=== PATIENT | female | born 1975 | race African-American/Black ===

== ENCOUNTER 2018-07-26 11:35 | Emergency (ER) | payer SELFPAY ==
[~2018-07-26] VITALS: Ht 160 cm; Wt 80.0 kg
[~2018-07-26 11:35] MED LIST: A/B OTIC OT; AMOXICILLIN500 MG PO; AMOXICILLIN875 MG OR; AUGMENTIN875 MG PO; CIPROFLOXACN500 MG PO; CLARITIN10 M1 PO; CORTISPORIN OTI10 M2 AD; DIFLUCAN150 MG PO; FIORICET PO; IBUPROFEN800 MG PO; LEVAQUIN500 MG PO; LORTAB 5 OR; NASONEX50 MCG/AC NAB; NEO/POLY/HC11 OT; NO MEDS; PENICILLN VK500 MG OR; ROCEPHIN 1 GM1 GM IM; SOLU-MEDROL125 MG IM; ULTRAM50 MG OR; ZOFRAN ODT8 MG OR
[2018-07-26 11:51] VITALS: BP 139/82
[2018-07-26] MEDS ORDERED: LISINOPRIL10 M1 PO (11:55)
[2018-07-26] MEDS ORDERED: CHOLESTEROL PILL (11:55)
[2018-07-26] MEDS ORDERED: CEPHALEXIN500 M1 PO (12:57)
== END 2018-07-26 13:09 | disposition home or self-care (01) | DRG 816 ==
LOC: ED 11:35
DX: I88.9 Nonspecific lymphadenitis, unspecified (principal); I10 Essential (primary) hypertension

== ENCOUNTER 2018-08-17 09:48 | Emergency (ER) | payer SELFPAY ==
[~2018-08-17] VITALS: Ht 160 cm; Wt 72.7 kg
[~2018-08-17 09:48] MED LIST changes: +CEPHALEXIN500 M1 PO; +CHOLESTEROL PILL; +LISINOPRIL10 M1 PO
[2018-08-17] MEDS ORDERED: CLARITIN10 M1 PO (09:56)
[2018-08-17 10:59] LABS: HEMATOCRIT 37.5 % (37.0-47.0); HEMOGLOBIN 11.4 g/dl (12.0-16.0); IMMATURE GRANULOCYTES 0.3 % (0.0-5.0); MEAN CELL VOLUME 75.6 fL CALC (80.0-100.0); MEAN CORPUSCULAR HGB CONC 30.4 g/L CALC (32.0-36.0); NEUT# 5.18 thou/uL (2.00-7.15); RED BLOOD COUNT 4.96 mill/uL (4.20-5.60)
[2018-08-17 11:13] LABS: ALBUMIN 4.8 g/dL (3.2-5.0); ALKALINE PHOSPHATASE 110 u/l (38-126); ANION GAP 15 (6-22 (CALC)); BILIRUBIN, TOTAL 0.3 mg/dL (0.0-1.4); BUN 10 mg/dL (7-17); BUN/CREATININE RATIO 14 (12-20 (CALC)); CARBON DIOXIDE 24 mmol/l (22-30); CHLORIDE 105 mmol/l (95-108); CREATININE 0.8 mg/dL (0.5-1.0); GFR > 60 ML/MIN (>=60 (CALC)); GFR FOR AFR.AMER. > 60 ML/MIN (>=60 (CALC)); SGOT/AST 30 u/l (14-36); SODIUM 140 mmol/l (137-146); TOTAL PROTEIN 8.4 g/dL (6.3-8.2)
[2018-08-17 11:21] LABS: MYOGLOBIN 25 ng/mL (0 - 62)
[2018-08-17 11:26] LABS: URINE BILIRUBIN - DIPSTICK NEGATIVE (NEGATIVE); URINE BLOOD DIPSTICK SMALL (NEGATIVE); URINE COLOR YELLOW; URINE GLUCOSE - DIPSTICK NEGATIVE (NEGATIVE); URINE KETONE NEGATIVE (NEGATIVE); URINE LEUK ESTERASE NEGATIVE (NEGATIVE); URINE NITRITE - DIPSTICK NEGATIVE (Negative); URINE PH 5.5 (4.5-8.0); URINE PROTEIN - DIPSTICK NEGATIVE (NEG-TRACE); URINE SPECIFIC GRAVITY 1.015; URINE UROBILINOGEN - DIPSTICK 0.2 E.U./dL (0.2)
[2018-08-17 11:34] LABS: BARBITURATES NEGATIVE (NEGATIVE); COCAINE NEGATIVE (NEGATIVE); METHADONE NEGATIVE (NEGATIVE); TETRAHYDROCANNABIONOL NEGATIVE (NEGATIVE); TRICYLIC ANTIDEPRESSANTS NEGATIVE (NEGATIVE)
[2018-08-17 11:35] LABS: OXCYCODONE NEGATIVE (NEGATIVE)
[2018-08-17 11:38] LABS: URINE SQUAMOUS EPITHELIAL CELL FEW EPI/hpf (0-FEW)
[2018-08-17] MEDS ORDERED: ZOFRAN ODT4 MG PO (13:13)
[2018-08-17] MEDS ORDERED: ULTRAM50 M1 PO (13:13)
[2018-08-17] MEDS ORDERED: BACTRIM DS1 TAB PO (13:13)
[2018-08-17 13:26] VITALS: BP 125/67
== END 2018-08-17 13:26 | disposition home or self-care (01) | DRG 153 ==
LOC: ED 09:48
PROVIDERS: Emergency Medicine
DX: J02.9 Acute pharyngitis, unspecified (principal); N30.90 Cystitis, unspecified without hematuria; N83.202 Unspecified ovarian cyst, left side; I10 Essential (primary) hypertension
CPT/HCPCS: Q9967

== ENCOUNTER 2018-08-21 18:24 | Emergency (ER) | payer SELFPAY ==
[~2018-08-21] VITALS: Ht 160 cm; Wt 85.0 kg
[~2018-08-21 18:24] MED LIST changes: +BACTRIM DS1 TAB PO; +ULTRAM50 M1 PO; +ZOFRAN ODT4 MG PO
[2018-08-21 19:17] LABS: HEMATOCRIT 36.1 % (37.0-47.0); IMMATURE GRANULOCYTES 0.2 % (0.0-5.0); MEAN CELL VOLUME 74.6 fL CALC (80.0-100.0); MEAN CORPUSCULAR HGB 22.7 pG CALC (26.0-32.0); MEAN CORPUSCULAR HGB CONC 30.5 g/L CALC (32.0-36.0); NEUT# 2.49 thou/uL (2.00-7.15); RED BLOOD COUNT 4.84 mill/uL (4.20-5.60); RED CELL DISTRI WIDTH 15.1 % (11.5-15.5)
[2018-08-21] MEDS ORDERED: ZESTRIL5 M1 PO (19:18)
[2018-08-21 19:38] LABS: ALBUMIN 4.8 g/dL (3.2-5.0); ALKALINE PHOSPHATASE 110 u/l (38-126); ANION GAP 18 (6-22 (CALC)); BILIRUBIN, TOTAL 0.3 mg/dL (0.0-1.4); BUN 9 mg/dL (7-17); BUN/CREATININE RATIO 8 (12-20 (CALC)); CARBON DIOXIDE 20 mmol/l (22-30); CHLORIDE 108 mmol/l (95-108); GFR > 60 ML/MIN (>=60 (CALC)); GFR FOR AFR.AMER. > 60 ML/MIN (>=60 (CALC)); POTASSIUM 4.1 mmol/l (3.5-5.1); SGOT/AST 52 u/l (14-36); SODIUM 141 mmol/l (137-146); TOTAL PROTEIN 8.1 g/dL (6.3-8.2)
[2018-08-21 22:30] VITALS: BP 130/82
[2018-08-21] MEDS ORDERED: CODEINE/GUAIFEN1 SOL PO (22:33)
== END 2018-08-21 22:38 | disposition home or self-care (01) | DRG 153 ==
LOC: ED 18:24
PROVIDERS: Emergency Medicine
DX: J02.9 Acute pharyngitis, unspecified (principal); E04.9 Nontoxic goiter, unspecified; I10 Essential (primary) hypertension
CPT/HCPCS: Q9967

== ENCOUNTER 2018-08-27 16:27 | Emergency (ER) | payer SELFPAY ==
[~2018-08-27] VITALS: Ht 160 cm; Wt 68.0 kg
[~2018-08-27 16:27] MED LIST changes: +CODEINE/GUAIFEN1 SOL PO; +ZESTRIL5 M1 PO
[2018-08-27 17:38] LABS: HEMOGLOBIN 12.9 g/dl (12.0-16.0); IMMATURE GRANULOCYTES 0.2 % (0.0-5.0); MEAN CELL VOLUME 75.6 fL CALC (80.0-100.0); MEAN CORPUSCULAR HGB 22.6 pG CALC (26.0-32.0); MEAN CORPUSCULAR HGB CONC 29.9 g/L CALC (32.0-36.0); NEUT# 3.21 thou/uL (2.00-7.15); RED BLOOD COUNT 5.7 mill/uL (4.20-5.60); RED CELL DISTRI WIDTH 15.3 % (11.5-15.5)
[2018-08-27 17:39] LABS: HEMATOCRIT 43.1 % (37.0-47.0)
[2018-08-27 18:02] LABS: ANION GAP 20 (6-22 (CALC)); BUN 9 mg/dL (7-17); BUN/CREATININE RATIO 10 (12-20 (CALC)); CARBON DIOXIDE 21 mmol/l (22-30); CHLORIDE 105 mmol/l (95-108); CREATININE 0.9 mg/dL (0.5-1.0); GFR > 60 ML/MIN (>=60 (CALC)); GFR FOR AFR.AMER. > 60 ML/MIN (>=60 (CALC)); POTASSIUM 4.5 mmol/l (3.5-5.1); SODIUM 140 mmol/l (137-146)
[2018-08-27 18:31] LABS: TSH, 3RD GENERATION 3.17 uIU/mL (0.47 - 4.68)
[2018-08-27] MEDS ORDERED: SIMVASTATIN5 MG PO (19:27)
[2018-08-27 21:05] VITALS: BP 127/80
== END 2018-08-27 21:04 | disposition short-term general hospital (02) | DRG 916 ==
LOC: ED 16:27
PROVIDERS: Family Medicine
DX: T78.2XXA Anaphylactic shock, unspecified, initial encounter (principal); E04.9 Nontoxic goiter, unspecified; R22.1 Localized swelling, mass and lump, neck

== ENCOUNTER 2018-10-11 21:01 | Emergency (ER) | payer BC ==
[~2018-10-11] VITALS: Ht 160 cm; Wt 71.0 kg
[~2018-10-11 21:01] MED LIST changes: +SIMVASTATIN5 MG PO
[2018-10-11] MEDS ORDERED: PREDNISONE20 MG PO (21:10)
[2018-10-11 21:45] LABS: HEMATOCRIT 39.2 % (37.0-47.0); MEAN CELL VOLUME 76.3 fL CALC (80.0-100.0); MEAN CORPUSCULAR HGB 23.3 pG CALC (26.0-32.0); MEAN CORPUSCULAR HGB CONC 30.6 g/L CALC (32.0-36.0); NEUT# 12.66 thou/uL (2.00-7.15); RED BLOOD COUNT 5.14 mill/uL (4.20-5.60); RED CELL DISTRI WIDTH 15.4 % (11.5-15.5)
[2018-10-11 22:00] LABS: ALBUMIN 4.5 g/dL (3.2-5.0); ALKALINE PHOSPHATASE 86 u/l (38-126); ANION GAP 15 (6-22 (CALC)); BILIRUBIN, TOTAL 0.3 mg/dL (0.0-1.4); BUN 14 mg/dL (7-17); BUN/CREATININE RATIO 16 (12-20 (CALC)); CHLORIDE 104 mmol/l (95-108); CREATININE 0.9 mg/dL (0.5-1.0); GFR > 60 ML/MIN (>=60 (CALC)); GFR FOR AFR.AMER. > 60 ML/MIN (>=60 (CALC)); POTASSIUM 3.6 mmol/l (3.5-5.1); SGOT/AST 23 u/l (14-36); SODIUM 142 mmol/l (137-146); TOTAL PROTEIN 7.5 g/dL (6.3-8.2)
[2018-10-11 22:03] LABS: CARBON DIOXIDE 27 mmol/l (22-30)
[2018-10-11 23:20] LABS: URINE BILIRUBIN - DIPSTICK NEGATIVE (NEGATIVE); URINE BLOOD DIPSTICK SMALL (NEGATIVE); URINE COLOR YELLOW; URINE GLUCOSE - DIPSTICK NEGATIVE (NEGATIVE); URINE KETONE NEGATIVE (NEGATIVE); URINE LEUK ESTERASE NEGATIVE (NEGATIVE); URINE NITRITE - DIPSTICK NEGATIVE (Negative); URINE PH 5.5 (4.5-8.0); URINE PROTEIN - DIPSTICK NEGATIVE (NEG-TRACE); URINE SPECIFIC GRAVITY 1.025; URINE UROBILINOGEN - DIPSTICK 0.2 E.U./dL (0.2)
[2018-10-11 23:40] LABS: URINE SQUAMOUS EPITHELIAL CELL FEW EPI/hpf (0-FEW)
[2018-10-11] MEDS ORDERED: SINGULAIR10 MG PO (23:43)
[2018-10-12] VITALS: BP 121/77
== END 2018-10-12 | disposition home or self-care (01) | DRG 607 ==
LOC: ED 21:01
PROVIDERS: Family Medicine
DX: R22.0 Localized swelling, mass and lump, head (principal); J02.9 Acute pharyngitis, unspecified; M79.89 Other specified soft tissue disorders; T38.0X5A Adverse effect of glucocorticoids and synthetic analogues, initial encounter; I10 Essential (primary) hypertension

== ENCOUNTER 2018-10-14 10:51 | Emergency (ER) | payer BC ==
[~2018-10-14] VITALS: Ht 160 cm; Wt 80.0 kg
[~2018-10-14 10:51] MED LIST changes: +PREDNISONE20 MG PO; +SIMVASTATIN40 MG PO; -SIMVASTATIN5 MG PO; +SINGULAIR10 MG PO
[2018-10-14 11:46] LABS: HEMATOCRIT 40.5 % (37.0-47.0); HEMOGLOBIN 12.1 g/dl (12.0-16.0); IMMATURE GRANULOCYTES 0.7 % (0.0-5.0); MEAN CELL VOLUME 77.6 fL CALC (80.0-100.0); MEAN CORPUSCULAR HGB 23.2 pG CALC (26.0-32.0); MEAN CORPUSCULAR HGB CONC 29.9 g/L CALC (32.0-36.0); RED BLOOD COUNT 5.22 mill/uL (4.20-5.60); RED CELL DISTRI WIDTH 15.7 % (11.5-15.5)
[2018-10-14 11:54] LABS: ANION GAP 18 (6-22 (CALC)); BUN 12 mg/dL (7-17); BUN/CREATININE RATIO 15 (12-20 (CALC)); CARBON DIOXIDE 26 mmol/l (22-30); CHLORIDE 100 mmol/l (95-108); CREATININE 0.8 mg/dL (0.5-1.0); GFR > 60 ML/MIN (>=60 (CALC)); GFR FOR AFR.AMER. > 60 ML/MIN (>=60 (CALC)); SODIUM 141 mmol/l (137-146)
[2018-10-14 12:11] LABS: POTASSIUM 2.7 mmol/l (3.5-5.1)
[2018-10-14] MEDS ORDERED: OMEPRAZOLE10 MG PO (12:40)
[2018-10-14 14:20] VITALS: BP 149/86
== END 2018-10-14 14:20 | disposition short-term general hospital (02) | DRG 916 ==
LOC: ED 10:51
PROVIDERS: Family Medicine
PROC: 0BH17EZ Insertion of Endotracheal Airway into Trachea, Via Natural or Artificial Opening (ICD-10-PCS; principal; 2018-10-14)
PROC: 0T9B70Z Drainage of Bladder with Drainage Device, Via Natural or Artificial Opening (ICD-10-PCS; 2018-10-14)
PROC: 02HV33Z Insertion of Infusion Device into Superior Vena Cava, Percutaneous Approach (ICD-10-PCS; 2018-10-14)
DX: T88.6XXA Anaphylactic reaction due to adverse effect of correct drug or medicament properly administered, initial encounter (principal); T38.0X5A Adverse effect of glucocorticoids and synthetic analogues, initial encounter; I10 Essential (primary) hypertension

== ENCOUNTER 2018-10-21 14:33 | Emergency (ER) | payer BC ==
[~2018-10-21] VITALS: Ht 160 cm; Wt 75.0 kg
[~2018-10-21 14:33] MED LIST changes: +OMEPRAZOLE10 MG PO
[2018-10-21] MEDS ORDERED: TESSALON PERLE100 MG PO (15:25)
[2018-10-21 15:26] LABS: ALBUMIN 5.2 g/dL (3.2-5.0); ALKALINE PHOSPHATASE 99 u/l (38-126); BUN 22 mg/dL (7-17); BUN/CREATININE RATIO 27 (12-20 (CALC)); CARBON DIOXIDE 26 mmol/l (22-30); CHLORIDE 96 mmol/l (95-108); CREATININE 0.8 mg/dL (0.5-1.0); GFR > 60 ML/MIN (>=60 (CALC)); GFR FOR AFR.AMER. > 60 ML/MIN (>=60 (CALC)); SODIUM 138 mmol/l (137-146); TOTAL PROTEIN 8.8 g/dL (6.3-8.2)
[2018-10-21] MEDS ORDERED: PREDNISONE20 MG PO (15:26)
[2018-10-21] MEDS ORDERED: CODEINE/GUAIFEN1 SOL PO (15:26)
[2018-10-21 15:27] LABS: ANION GAP 21 (6-22 (CALC)); BILIRUBIN, TOTAL 0.7 mg/dL (0.0-1.4); POTASSIUM 4.9 mmol/l (3.5-5.1); SGOT/AST 48 u/l (14-36)
[2018-10-21] MEDS ORDERED: EPINEPHRIN IM (15:30)
[2018-10-21 15:32] LABS: HEMATOCRIT 45.1 % (37.0-47.0); HEMOGLOBIN 13.7 g/dl (12.0-16.0); IMMATURE GRANULOCYTES 1.4 % (0.0-5.0); MEAN CELL VOLUME 76.3 fL CALC (80.0-100.0); MEAN CORPUSCULAR HGB 23.2 pG CALC (26.0-32.0); MEAN CORPUSCULAR HGB CONC 30.4 g/L CALC (32.0-36.0); NEUT# 23.02 thou/uL (2.00-7.15); RED BLOOD COUNT 5.91 mill/uL (4.20-5.60); RED CELL DISTRI WIDTH 15.8 % (11.5-15.5)
[2018-10-21 15:36] VITALS: BP 134/64
== END 2018-10-21 15:36 | disposition short-term general hospital (02) | DRG 916 ==
LOC: ED 14:33
PROVIDERS: Emergency Medicine
DX: T78.3XXA Angioneurotic edema, initial encounter (principal); R06.02 Shortness of breath

== ENCOUNTER 2019-01-22 08:58 | Emergency (ER) | payer BC ==
[~2019-01-22] VITALS: Ht 160 cm; Wt 80.0 kg
[~2019-01-22 08:58] MED LIST changes: +EPINEPHRIN IM; +TESSALON PERLE100 MG PO
[2019-01-22 09:51] LABS: IMMATURE GRANULOCYTES 0.2 % (0.0-5.0); MEAN CELL VOLUME 76.6 fL CALC (80.0-100.0); MEAN CORPUSCULAR HGB 23.4 pG CALC (26.0-32.0); MEAN CORPUSCULAR HGB CONC 30.5 g/L CALC (32.0-36.0); NEUT# 3.38 thou/uL (2.00-7.15); RED CELL DISTRI WIDTH 13.9 % (11.5-15.5)
[2019-01-22 09:53] LABS: HEMATOCRIT 38.3 % (37.0-47.0); HEMOGLOBIN 11.7 g/dl (12.0-16.0)
[2019-01-22] MEDS ORDERED: [UNRECOGNIZED DRUG - CODE] SC (10:14)
[2019-01-22] MEDS ORDERED: OMEPRAZOLE20 M2 PO (10:15)
[2019-01-22] MEDS ORDERED: AFRIN0.05 % (10:15)
[2019-01-22] MEDS ORDERED: BENADRYL 25MG C25 MG PO (10:16)
[2019-01-22] MEDS ORDERED: FLONASE AL50 MCG/ACT NAB (10:17)
[2019-01-22 10:18] LABS: ANION GAP 16 (6-22 (CALC)); BUN 8 mg/dL (7-17); BUN/CREATININE RATIO 13 (12-20 (CALC)); CARBON DIOXIDE 24 mmol/l (22-30); CHLORIDE 108 mmol/l (95-108); CREATININE 0.6 mg/dL (0.5-1.0); GFR > 60 ML/MIN (>=60 (CALC)); GFR FOR AFR.AMER. > 60 ML/MIN (>=60 (CALC)); POTASSIUM 3.9 mmol/l (3.5-5.1); SODIUM 144 mmol/l (137-146)
[2019-01-22] MEDS ORDERED: ALLERGY RE50 MCG/ACT NAB (10:18)
[2019-01-22 13:12] VITALS: BP 119/86
== END 2019-01-22 13:37 | disposition home or self-care (01) | DRG 103 ==
LOC: ED 08:58
PROVIDERS: Family Medicine
DX: R51 Headache (principal); I10 Essential (primary) hypertension

== ENCOUNTER 2019-02-18 11:40 | Emergency (ER) | payer BC ==
[~2019-02-18] VITALS: Ht 160 cm; Wt 79.5 kg
[~2019-02-18 11:40] MED LIST changes: +AFRIN0.05 %; +ALLERGY RE50 MCG/ACT NAB; +BENADRYL 25MG C25 MG PO; +FLONASE AL50 MCG/ACT NAB; +OMEPRAZOLE20 M2 PO; +[UNRECOGNIZED DRUG - CODE] SC
[2019-02-18 14:02] VITALS: BP 114/75
== END 2019-02-18 14:43 | disposition home or self-care (01) | DRG 812 ==
LOC: ED 11:40
DX: T80.89XA Other complications following infusion, transfusion and therapeutic injection, initial encounter (principal); I11.0 Hypertensive heart disease with heart failure; I50.9 Heart failure, unspecified; Y84.8 Other medical procedures as the cause of abnormal reaction of the patient, or of later complication, without mention of misadventure at the time of the procedure

== ENCOUNTER 2019-04-07 00:20 | Emergency (ER) | payer BC ==
[~2019-04-07] VITALS: Ht 160 cm; Wt 77.2 kg
[2019-04-07] MEDS ORDERED: AMOXICILLIN500 M2 PO (00:40)
[2019-04-07 00:54] VITALS: BP 139/95
[2019-04-07] MEDS ORDERED: CORLANOR5 MG PO (01:12)
== END 2019-04-07 00:54 | disposition home or self-care (01) | DRG 153 ==
LOC: ED 00:20
DX: J02.9 Acute pharyngitis, unspecified (principal)

== ENCOUNTER 2019-05-16 | Emergency (ER) | payer BC ==
[~2019-05-16] MED LIST changes: +AMOXICILLIN500 M2 PO; +CORLANOR5 MG PO
[2019-05-16] MEDS ORDERED: METFORMIN500 MG PO (21:52)
[2019-05-16] MEDS ORDERED: CODEINE/GUAIFEN1 SOL PO (22:51)
[2019-05-16] MEDS ORDERED: AMOXICILLIN500 MG PO (22:51)
== END 2019-05-16 23:20 | disposition home or self-care (01) | DRG 153 ==
DX: J02.9 Acute pharyngitis, unspecified (principal); H66.90 Otitis media, unspecified, unspecified ear; I11.0 Hypertensive heart disease with heart failure; I50.9 Heart failure, unspecified

== ENCOUNTER 2019-09-17 13:28 | Emergency (ER) | payer BC ==
[~2019-09-17 13:28] MED LIST changes: +METFORMIN500 MG PO
[2019-09-17 14:59] VITALS: BP 141/85
[2019-09-17] MEDS ORDERED: AMOX/K CLAV875 M1 PO (15:00)
== END 2019-09-17 14:59 | disposition home or self-care (01) | DRG 159 ==
LOC: ED 13:28
DX: K03.81 Cracked tooth (principal); E11.9 Type 2 diabetes mellitus without complications; I11.0 Hypertensive heart disease with heart failure; I50.9 Heart failure, unspecified; I48.91 Unspecified atrial fibrillation; Z79.84 Long term (current) use of oral hypoglycemic drugs

== ENCOUNTER 2021-02-20 07:54 | Emergency (ER) | payer OTHER ==
[~2021-02-20] VITALS: Ht 160 cm; Wt 102.0 kg
[~2021-02-20 07:54] MED LIST changes: +AMOX/K CLAV875 M1 PO
[2021-02-20] MEDS ORDERED: NORVASC5 M1 PO (08:21)
[2021-02-20] MEDS ORDERED: ZANAFLEX2 MG PO (09:48)
[2021-02-20] MEDS ORDERED: TORADOL PO (09:48)
[2021-02-20] MEDS ORDERED: MEDDOSEPAK PO (09:48)
[2021-02-20] MEDS ORDERED: LIDOCAINE PATCH 55 % TOP (09:48)
[2021-02-20 09:51] VITALS: BP 169/86
== END 2021-02-20 10:16 | disposition home or self-care (01) | DRG 552 ==
LOC: ED 07:54
DX: M51.86 Other intervertebral disc disorders, lumbar region (principal); I11.0 Hypertensive heart disease with heart failure; I50.9 Heart failure, unspecified; E11.9 Type 2 diabetes mellitus without complications; E78.5 Hyperlipidemia, unspecified; I48.91 Unspecified atrial fibrillation; M79.7 Fibromyalgia; E78.00 Pure hypercholesterolemia, unspecified

== ENCOUNTER 2021-07-18 12:34 | Emergency (ER) | payer OTHER ==
[~2021-07-18] VITALS: Ht 157.5 cm; Wt 73.6 kg
[~2021-07-18 12:34] MED LIST changes: +CYMBALTA20 MG PO; +HYDROXYZINE HYD25 MG PO; +LIDOCAINE PATCH 55 % TOP; +MEDDOSEPAK PO; +NORVASC5 M1 PO; +TORADOL PO; +ZANAFLEX2 MG PO
[2021-07-18 13:15] VITALS: BP 122/86
[2021-07-18] MEDS ORDERED: BENADRYL ALLERG25 M1 PO (13:49)
[2021-07-18 13:56] LABS: HEMATOCRIT 39.1 % (37.0-47.0); HEMOGLOBIN 11.6 g/dl (12.0-16.0); IMMATURE GRANULOCYTES 0.2 % (0.0-5.0); MEAN CELL VOLUME 75.9 fL CALC (80.0-100.0); MEAN CORPUSCULAR HGB 22.5 pG CALC (26.0-32.0); MEAN CORPUSCULAR HGB CONC 29.7 g/dL CAL (32.0-36.0); NEUT# 3.67 thou/uL (2.00-7.15); RED BLOOD COUNT 5.15 mill/uL (4.20-5.60); RED CELL DISTRI WIDTH 14.1 % (11.5-15.5)
[2021-07-18 14:11] LABS: ALBUMIN 4.6 g/dL (3.2-5.0); ALKALINE PHOSPHATASE 97 u/l (38-126); AMYLASE 67 u/l (30-110); ANION GAP 15 (6-22 (CALC)); BILIRUBIN, TOTAL 0.5 mg/dL (0.0-1.4); BUN 6 mg/dL (7-17); BUN/CREATININE RATIO 9 (12-20 (CALC)); CARBON DIOXIDE 24 mmol/l (22-30); CHLORIDE 104 mmol/l (95-108); CREATININE 0.7 mg/dL (0.5-1.0); GFR > 60 ML/MIN (>=60 (CALC)); GFR FOR AFR.AMER. > 60 ML/MIN (>=60 (CALC)); LIPASE 177 u/l (23-300); POTASSIUM 4.3 mmol/l (3.5-5.1); SGOT/AST 72 u/l (14-36); SODIUM 139 mmol/l (137-146); TOTAL PROTEIN 8.1 g/dL (6.3-8.2)
[2021-07-18] MEDS ORDERED: LORTAB 1010 MG PO (16:13)
[2021-07-18] MEDS ORDERED: PREVACID30 M3 PO (16:13)
[2021-07-18] MEDS ORDERED: ONDANSETRON4 MG PO (16:13)
[2021-07-18 16:20] VITALS: BP 122/86
--- NOTE | 2021-07-20 09:04 | NUR ---
1 OF 4 OF THE BLOOD CULTURES SHOWS GRAM POSTIVIE COCCI. SPOKE TO DR. HOLM, NO NEW ORDERS AND WILL FOLLOW UP WITH FINAL .
== END 2021-07-18 16:54 | disposition home or self-care (01) | DRG 446 ==
LOC: ED 12:34
PROVIDERS: Emergency Medicine
DX: K80.20 Calculus of gallbladder without cholecystitis without obstruction (principal); I11.0 Hypertensive heart disease with heart failure; I50.9 Heart failure, unspecified; I48.91 Unspecified atrial fibrillation; Z20.822 Contact with and (suspected) exposure to COVID-19
CPT/HCPCS: Q9967; S0164

== ENCOUNTER 2021-07-22 21:52 | Emergency (ER) | payer OTHER ==
[~2021-07-22] VITALS: Ht 157.5 cm; Wt 72.0 kg
[~2021-07-22 21:52] MED LIST changes: +BENADRYL ALLERG25 M1 PO; +LORTAB 1010 MG PO; +ONDANSETRON4 MG PO; +PREVACID30 M3 PO
[2021-07-22 21:58] VITALS: BP 134/89
[2021-07-22 22:00] VITALS: BP 140/92
[2021-07-22 22:33] VITALS: BP 140/92
[2021-07-22] MEDS ORDERED: MIRALAX17 GM PO (22:34)
== END 2021-07-22 22:44 | disposition home or self-care (01) | DRG 392 ==
LOC: ED 21:52
DX: K59.00 Constipation, unspecified (principal); I11.0 Hypertensive heart disease with heart failure; I50.9 Heart failure, unspecified; I48.91 Unspecified atrial fibrillation; E78.5 Hyperlipidemia, unspecified

== ENCOUNTER 2021-07-25 10:45 | Day surgery (SDC) | payer OTHER ==
[~2021-07-25] VITALS: Ht 157.5 cm; Wt 73.5 kg
[~2021-07-25 10:45] MED LIST changes: +MIRALAX17 GM PO
[2021-07-25] MEDS ORDERED: PERCOCET 5/321 COMBO PO (12:41)
[2021-07-25 15:04] VITALS: BP 112/83
== END 2021-07-25 15:10 | disposition home or self-care (01) | DRG 419 ==
LOC: ENDO 10:45 → ORM 13:15 → ENDO 15:10
PROVIDERS: ATTEND Surgery
PROC: 0FT44ZZ Resection of Gallbladder, Percutaneous Endoscopic Approach (ICD-10-PCS; principal; 2021-07-25)
PROC: 0DJ08ZZ Inspection of Upper Intestinal Tract, Via Natural or Artificial Opening Endoscopic (ICD-10-PCS; 2021-07-25)
PROC: 0DBN8ZX Excision of Sigmoid Colon, Via Natural or Artificial Opening Endoscopic, Diagnostic (ICD-10-PCS; 2021-07-25)
DX: K81.1 Chronic cholecystitis (principal); Z12.11 Encounter for screening for malignant neoplasm of colon; D12.5 Benign neoplasm of sigmoid colon; I10 Essential (primary) hypertension; E11.9 Type 2 diabetes mellitus without complications; E78.5 Hyperlipidemia, unspecified; Z79.84 Long term (current) use of oral hypoglycemic drugs; Z80.0 Family history of malignant neoplasm of digestive organs; K64.8 Other hemorrhoids
CPT/HCPCS: J0131; J1610; Q9967

== ENCOUNTER 2021-08-24 08:56 | Day surgery (SDC) | payer OTHER ==
[~2021-08-24] VITALS: Ht 157.5 cm; Wt 72.6 kg
[~2021-08-24 08:56] MED LIST changes: +PERCOCET 5/321 COMBO PO
[2021-08-24] MEDS ORDERED: PERCOCET 5/321 COMBO PO (10:50)
[2021-08-24 12:11] VITALS: BP 126/72
== END 2021-08-24 12:30 | disposition home or self-care (01) | DRG 349 ==
LOC: ORM 08:56
PROVIDERS: ATTEND Surgery
PROC: 06BY3ZC Excision of Hemorrhoidal Plexus, Percutaneous Approach (ICD-10-PCS; principal; 2021-08-24)
DX: K64.8 Other hemorrhoids (principal)
CPT/HCPCS: C9290; J0131

== ENCOUNTER 2021-12-15 17:28 | Emergency (ER) | payer SELFPAY ==
[2021-12-15] VITALS (10 sets, daily range): BP systolic 121–149; BP diastolic 82–97
[~2021-12-15] VITALS: Ht 157.5 cm; Wt 72.7 kg
[2021-12-15 17:57] LABS: HEMATOCRIT 40.1 % (37.0-47.0); HEMOGLOBIN 12.5 g/dl (12.0-16.0); IMMATURE GRANULOCYTES 0.1 % (0.0-5.0); MEAN CELL VOLUME 73.2 fL CALC (80.0-100.0); MEAN CORPUSCULAR HGB 22.8 pG CALC (26.0-32.0); MEAN CORPUSCULAR HGB CONC 31.2 g/dL CAL (32.0-36.0); NEUT# 4.61 thou/uL (2.00-7.15); RED BLOOD COUNT 5.48 mill/uL (4.20-5.60); RED CELL DISTRI WIDTH 14.1 % (11.5-15.5)
[2021-12-15 18:25] LABS: ALBUMIN 4.8 g/dL (3.2-5.0); ALKALINE PHOSPHATASE 113 u/l (38-126); ANION GAP 17 (6-22 (CALC)); BUN 9 mg/dL (7-17); BUN/CREATININE RATIO 12 (12-20 (CALC)); CARBON DIOXIDE 27 mmol/l (22-30); CHLORIDE 102 mmol/l (95-108); CREATININE 0.7 mg/dL (0.5-1.0); GFR FOR AFR.AMER. > 60 ML/MIN (>=60 (CALC)); GFR OTHER RACES > 60 ML/MIN (>=60 (CALC)); POTASSIUM 4.4 mmol/l (3.5-5.1); SODIUM 141 mmol/l (137-146); TOTAL PROTEIN 8.5 g/dL (6.3-8.2)
[2021-12-15 18:27] LABS: BILIRUBIN, TOTAL 0.6 mg/dL (0.0-1.4); SGOT/AST 80 u/l (14-36)
[2021-12-15] MEDS ORDERED: HIGH CHOLESTEROL MED (19:34)
[2021-12-15] MEDS ORDERED: OMEPRAZOLE20 MG PO (19:36)
[2021-12-15] MEDS ORDERED: NAPROXEN500 MG PO (19:45)
[2021-12-15] MEDS ORDERED: METHOCARBAMOL500 MG PO (19:45)
[2021-12-15] MEDS ORDERED: PENICILLN VK500 MG PO (19:45)
== END 2021-12-15 19:58 | disposition home or self-care (01) | DRG 103 ==
LOC: ED 17:28
PROVIDERS: Nurse Practitioner
DX: R51.9 Headache, unspecified (principal); K04.7 Periapical abscess without sinus; I11.0 Hypertensive heart disease with heart failure; I50.9 Heart failure, unspecified; E78.5 Hyperlipidemia, unspecified; I48.91 Unspecified atrial fibrillation

== ENCOUNTER 2022-05-09 06:11 | Emergency (ER) | payer SELFPAY ==
[~2022-05-09] VITALS: Ht 157.5 cm; Wt 72.0 kg
[~2022-05-09 06:11] MED LIST changes: +HIGH CHOLESTEROL MED; +METHOCARBAMOL500 MG PO; +NAPROXEN500 MG PO; +OMEPRAZOLE20 MG PO; +PENICILLN VK500 MG PO
[2022-05-09 06:30] VITALS: BP 129/91
[2022-05-09 06:45] VITALS: BP 119/88
[2022-05-09 07:11] LABS: BASO% 0.6 % (0-3); EOS% 3.3 % (0-8); HEMATOCRIT 42.2 % (37.0-47.0); HEMOGLOBIN 13.2 g/dl (12.0-16.0); IMMATURE GRANULOCYTES 0.1 % (0.0-5.0); LYMPH% 33.8 % (15-41); MEAN CELL VOLUME 73.8 fL CALC (80.0-100.0); MEAN CORPUSCULAR HGB 23.1 pG CALC (26.0-32.0); MEAN CORPUSCULAR HGB CONC 31.3 g/dL CAL (32.0-36.0); MONO% 5.9 % (2-13); NEUT# 3.8 thou/uL (2.00-7.15); NEUT% 56.3 % (42-76); RED BLOOD COUNT 5.72 mill/uL (4.20-5.60); RED CELL DISTRI WIDTH 13.7 % (11.5-15.5)
[2022-05-09 07:26] LABS: ALBUMIN 4.7 g/dL (3.2-5.0); ALKALINE PHOSPHATASE 143 u/l (38-126); ANION GAP 14 (6-22 (CALC)); BUN 13 mg/dL (7-17); BUN/CREATININE RATIO 16 (12-20 (CALC)); CARBON DIOXIDE 28 mmol/l (22-30); CHLORIDE 105 mmol/l (95-108); CPK 35 u/l (30-165); CREATININE 0.8 mg/dL (0.5-1.0); GFR FOR AFR.AMER. > 60 ML/MIN (>=60 (CALC)); GFR OTHER RACES > 60 ML/MIN (>=60 (CALC)); POTASSIUM 3.9 mmol/l (3.5-5.1); SGOT/AST 68 u/l (14-36); SODIUM 142 mmol/l (137-146); TOTAL PROTEIN 8.7 g/dL (6.3-8.2)
[2022-05-09 07:42] LABS: BILIRUBIN, TOTAL 0.3 mg/dL (0.0-1.4)
[2022-05-09 09:18] VITALS: BP 119/88
[2022-05-09 10:36] LABS: HDL CHOLESTEROL 40 mg/dL (>=40); TOTAL TRIGLYCERIDES 219 mg/dl (30-149); VLDL CHOLESTROL 44 mg/dl (1-41 (CALC))
[2022-05-09 10:37] LABS: CALCULATED LDLCHOLESTEROL 155 mg/dL (62-129 (CALC)); TOTAL CHOLESTEROL 239 mg/dl (0-199)
[2022-05-09 11:07] LABS: TSH, 3RD GENERATION 6.17 uIU/mL (0.47 - 4.68)
== END 2022-05-09 09:19 | disposition home or self-care (01) | DRG 74 ==
LOC: ED 06:11
PROVIDERS: Family Medicine
DX: M54.12 Radiculopathy, cervical region (principal); M25.511 Pain in right shoulder; M54.2 Cervicalgia

== ENCOUNTER 2022-06-22 17:18 | Emergency (ER) | payer BC ==
[~2022-06-22] VITALS: Ht 157.5 cm; Wt 79.0 kg
[2022-06-22] VITALS (10 sets, daily range): BP systolic 112–146; BP diastolic 83–95
[2022-06-22 18:00] LABS: BASO% 0.5 % (0-3); EOS% 1.9 % (0-8); HEMATOCRIT 44.3 % (37.0-47.0); HEMOGLOBIN 13.2 g/dl (12.0-16.0); IMMATURE GRANULOCYTES 0.2 % (0.0-5.0); MEAN CELL VOLUME 72.6 fL CALC (80.0-100.0); MEAN CORPUSCULAR HGB 21.6 pG CALC (26.0-32.0); MEAN CORPUSCULAR HGB CONC 29.8 g/dL CAL (32.0-36.0); MONO% 6.2 % (2-13); NEUT# 3.3 thou/uL (2.00-7.15); NEUT% 51.2 % (42-76); RED BLOOD COUNT 6.1 mill/uL (4.20-5.60); RED CELL DISTRI WIDTH 13.9 % (11.5-15.5)
[2022-06-22 18:15] LABS: LIPASE 247 u/l (23-300)
[2022-06-22 18:16] LABS: ALBUMIN 4.9 g/dL (3.2-5.0); ALKALINE PHOSPHATASE 114 u/l (38-126); ANION GAP 16 (6-22 (CALC)); BILIRUBIN, TOTAL 0.3 mg/dL (0.02-1.3); BUN 11 mg/dL (7-17); BUN/CREATININE RATIO 11 (12-20 (CALC)); CARBON DIOXIDE 27 mmol/l (22-30); CHLORIDE 104 mmol/l (95-108); GFR FOR AFR.AMER. > 60 ML/MIN (>=60 (CALC)); GFR OTHER RACES 60 ML/MIN (>=60 (CALC)); POTASSIUM 3.7 mmol/l (3.5-5.1); SGOT/AST 47 u/l (14-36); SODIUM 143 mmol/l (137-146); TOTAL PROTEIN 8.6 g/dL (6.3-8.2)
[2022-06-22 20:43] LABS: URINE BILIRUBIN - DIPSTICK NEGATIVE (NEGATIVE); URINE BLOOD DIPSTICK TRACE-INTACT (NEGATIVE); URINE COLOR YELLOW; URINE GLUCOSE - DIPSTICK >=1000 mg/dL (NEGATIVE); URINE KETONE NEGATIVE (NEGATIVE); URINE LEUK ESTERASE NEGATIVE (NEGATIVE); URINE PROTEIN - DIPSTICK NEGATIVE (NEG-TRACE); URINE UROBILINOGEN - DIPSTICK 0.2 E.U./dL (0.2)
[2022-06-22 20:45] LABS: URINE NITRITE - DIPSTICK NEGATIVE (Negative)
[2022-06-22] MEDS ORDERED: NAPROXEN500 MG PO (20:48)
[2022-06-22] MEDS ORDERED: METHOCARBAMOL500 MG PO (20:48)
[2022-06-22] MEDS ORDERED: TRAMADOL HYDROC50 M1 PO (20:48)
== END 2022-06-22 22:43 | disposition home or self-care (01) | DRG 552 ==
LOC: ED 17:18
PROVIDERS: Family Medicine; Nurse Practitioner
DX: M54.16 Radiculopathy, lumbar region (principal); R10.32 Left lower quadrant pain; R07.89 Other chest pain; I48.91 Unspecified atrial fibrillation; E78.5 Hyperlipidemia, unspecified; I11.0 Hypertensive heart disease with heart failure; I50.9 Heart failure, unspecified
CPT/HCPCS: Q9967

== ENCOUNTER 2022-09-01 20:39 | Emergency (ER) | payer BC ==
[~2022-09-01] VITALS: Ht 157.5 cm; Wt 75.0 kg
[~2022-09-01 20:39] MED LIST changes: +TRAMADOL HYDROC50 M1 PO
[2022-09-01] MEDS ORDERED: JARDIANCE10 MG (21:05)
[2022-09-01] MEDS ORDERED: PREDNISONE20 MG PO (21:05)
[2022-09-01] MEDS ORDERED: ATORVASTATIN CA40 MG PO (21:06)
[2022-09-01] MEDS ORDERED: DICYCLOMINE10 MG PO (21:06)
[2022-09-01] MEDS ORDERED: ZOFRAN4 MG/TAB PO (21:06)
[2022-09-01] MEDS ORDERED: FLEXERIL5 M1 PO (21:07)
[2022-09-01] MEDS ORDERED: MELOXICAM15 MG PO (21:08)
[2022-09-01] MEDS ORDERED: CYANOCOBAL1000 MCG/M SC (21:08)
[2022-09-01] MEDS ORDERED: CYMBALTA30 MG PO (21:09)
[2022-09-01] MEDS ORDERED: VIRTUSSIN A/C 11 SOL (21:10)
[2022-09-01] MEDS ORDERED: CARAFATE PO (21:11)
[2022-09-01] MEDS ORDERED: BUPROPION HCL150 MG PO (21:11)
[2022-09-01] MEDS ORDERED: BUT/APAP/CAF PO (21:11)
[2022-09-01] MEDS ORDERED: CARTIA XT180 MG (21:12)
[2022-09-01] MEDS ORDERED: FIORICET PO (23:51)
[2022-09-02 00:01] VITALS: BP 146/98
== END 2022-09-02 00:26 | disposition home or self-care (01) | DRG 103 ==
LOC: ED 20:39
DX: G43.909 Migraine, unspecified, not intractable, without status migrainosus (principal); I11.0 Hypertensive heart disease with heart failure; I50.9 Heart failure, unspecified; I25.10 Atherosclerotic heart disease of native coronary artery without angina pectoris; I48.91 Unspecified atrial fibrillation; E78.5 Hyperlipidemia, unspecified

== ENCOUNTER 2022-11-19 06:24 | Day surgery (SDC) | payer BC ==
[~2022-11-19] VITALS: Ht 157.5 cm; Wt 72.6 kg
[~2022-11-19 06:24] MED LIST changes: +ATORVASTATIN CA40 MG PO; +BUPROPION HCL150 MG PO; +BUT/APAP/CAF PO; +CARAFATE PO; +CARTIA XT180 MG; +CYANOCOBAL1000 MCG/M SC; +CYMBALTA30 MG PO; +DICYCLOMINE10 MG PO; +FLEXERIL5 M1 PO; +JARDIANCE10 MG; +MELOXICAM15 MG PO; +PROTONIX40 M2 PO; +RYBELSUS3 MG PO; +VIRTUSSIN A/C 11 SOL; +ZOFRAN4 MG/TAB PO
[2022-11-19 08:40] VITALS: BP 110/67
== END 2022-11-19 09:22 | disposition home or self-care (01) | DRG 392 ==
LOC: ENDO 06:24 → ORM 08:15 → ENDO 08:15 → ORM 08:45 → ENDO 09:22
PROVIDERS: ATTEND Internal Medicine Gastroenterology
PROC: 0DB98ZX Excision of Duodenum, Via Natural or Artificial Opening Endoscopic, Diagnostic (ICD-10-PCS; principal; 2022-11-19)
PROC: 0DB78ZX Excision of Stomach, Pylorus, Via Natural or Artificial Opening Endoscopic, Diagnostic (ICD-10-PCS; 2022-11-19)
PROC: 0DB48ZX Excision of Esophagogastric Junction, Via Natural or Artificial Opening Endoscopic, Diagnostic (ICD-10-PCS; 2022-11-19)
DX: K29.70 Gastritis, unspecified, without bleeding (principal); K44.9 Diaphragmatic hernia without obstruction or gangrene; K21.9 Gastro-esophageal reflux disease without esophagitis; E11.69 Type 2 diabetes mellitus with other specified complication; E78.5 Hyperlipidemia, unspecified; Z79.84 Long term (current) use of oral hypoglycemic drugs; Z90.49 Acquired absence of other specified parts of digestive tract

== ENCOUNTER 2022-12-07 07:00 | Emergency (ER) | payer BC ==
[2022-12-07] VITALS (19 sets, daily range): BP systolic 110–130; BP diastolic 68–89
[~2022-12-07] VITALS: Ht 157.5 cm; Wt 73.9 kg
[2022-12-07 07:23] LABS: BASO% 0.2 % (0-3); EOS% 0.6 % (0-8); HEMATOCRIT 43.7 % (37.0-47.0); HEMOGLOBIN 13.1 g/dl (12.0-16.0); IMMATURE GRANULOCYTES 0.2 % (0.0-5.0); LYMPH% 18.5 % (15-41); MEAN CELL VOLUME 74.7 fL CALC (80.0-100.0); MEAN CORPUSCULAR HGB 22.4 pG CALC (26.0-32.0); NEUT# 9.24 thou/uL (2.00-7.15); NEUT% 74.5 % (42-76); RED BLOOD COUNT 5.85 mill/uL (4.20-5.60); RED CELL DISTRI WIDTH 15.5 % (11.5-15.5)
[2022-12-07 07:40] LABS: ALBUMIN 4.6 g/dL (3.2-5.0); ALKALINE PHOSPHATASE 158 u/l (38-126); ANION GAP 15 (6-22 (CALC)); BUN 7 mg/dL (7-17); BUN/CREATININE RATIO 7 (12-20 (CALC)); CARBON DIOXIDE 25 mmol/l (22-30); CHLORIDE 103 mmol/l (95-108); CREATININE 0.9 mg/dL (0.5-1.0); GFR FOR AFR.AMER. > 60 ML/MIN (>=60 (CALC)); GFR OTHER RACES > 60 ML/MIN (>=60 (CALC)); POTASSIUM 3.7 mmol/l (3.5-5.1); SGOT/AST 37 u/l (14-36); SODIUM 140 mmol/l (137-146); TOTAL PROTEIN 8.6 g/dL (6.3-8.2)
[2022-12-07 07:47] LABS: BILIRUBIN, TOTAL 0.6 mg/dL (0.02-1.3)
== END 2022-12-07 12:40 | disposition home or self-care (01) | DRG 313 ==
LOC: ED 07:00
PROVIDERS: Family Medicine
DX: R07.9 Chest pain, unspecified (principal); E11.9 Type 2 diabetes mellitus without complications; I11.0 Hypertensive heart disease with heart failure; I50.9 Heart failure, unspecified; E78.5 Hyperlipidemia, unspecified; I48.91 Unspecified atrial fibrillation; M79.7 Fibromyalgia; Z79.84 Long term (current) use of oral hypoglycemic drugs
CPT/HCPCS: Q9967

== ENCOUNTER 2023-11-04 07:16 | Day surgery (SDC) | payer OTHER ==
[~2023-11-04] VITALS: Ht 157.5 cm; Wt 57.6 kg
[~2023-11-04 07:16] MED LIST changes: +HYDROXYZ HCL25 MG PO; -JARDIANCE10 MG; +JARDIANCE10 MG PO; +LORTAB 5/3255 MG PO; +NITROGLYCERIN0.3 MG PO; +OZEMPIC 8 MG/3M1 INJ SC; +VENTOLIN HFA108 MCG IN
[2023-11-04] MEDS ORDERED: SODIUM CHLORIDE 0.9% 1,000 ML IV ONE (07:19)
[2023-11-04] MEDS ORDERED: FAMOTIDINE 10MG/ML 2ML SDV IV ONE (07:19)
[2023-11-04] MEDS ORDERED: ONDANSETRON HCl 4 MG/2 ML SDV ONE (08:16)
[2023-11-04 09:28] VITALS: BP 120/81
[2023-11-04] MEDS ORDERED: PROPOFOL 200 MG/20 ML VIAL IV ONE (13:33)
[2023-11-04] MEDS ORDERED: LIDOCAINE HCL 2% 2ML SDV IV ONE (13:33)
== END 2023-11-04 09:20 | disposition home or self-care (01) | DRG 393 ==
LOC: ENDO 07:16
PROVIDERS: ATTEND Internal Medicine Gastroenterology
PROC: 0DBN8ZX Excision of Sigmoid Colon, Via Natural or Artificial Opening Endoscopic, Diagnostic (ICD-10-PCS; principal; 2023-11-04)
PROC: 0DBL8ZX Excision of Transverse Colon, Via Natural or Artificial Opening Endoscopic, Diagnostic (ICD-10-PCS; 2023-11-04)
DX: D12.3 Benign neoplasm of transverse colon (principal); K57.31 Diverticulosis of large intestine without perforation or abscess with bleeding; K63.5 Polyp of colon; E11.69 Type 2 diabetes mellitus with other specified complication; E78.5 Hyperlipidemia, unspecified; Z79.85 Long-term (current) use of injectable non-insulin antidiabetic drugs; Z79.84 Long term (current) use of oral hypoglycemic drugs; Z80.0 Family history of malignant neoplasm of digestive organs; Z86.010 Personal history of colon polyps

== ENCOUNTER 2023-12-02 06:36 | Emergency (ER) | payer OTHER ==
[~2023-12-02] VITALS: Ht 157.5 cm; Wt 58.8 kg
[2023-12-02] VITALS (17 sets, daily range): BP systolic 102–119; BP diastolic 58–84
[2023-12-02] MEDS ORDERED: SODIUM CHLORIDE 0.9% 1,000 ML IV ONE (07:05)
[2023-12-02] MEDS ORDERED: METOCLOPRAMIDE HCL 10 MG/2 ML SDV IV ONE (07:05)
[2023-12-02] MEDS ORDERED: KETOROLAC TROMETHAMINE 30 MG/ML SDV IV ONE (07:05)
[2023-12-02] MEDS ORDERED: DiphenhydrAMINE HCL 50 MG/ML SDV IV ONE (07:05)
[2023-12-02 07:34] LABS: BASO% 0.6 % (0-3); EOS% 1.1 % (0-8); HEMATOCRIT 41.8 % (37.0-47.0); HEMOGLOBIN 12.6 g/dl (12.0-16.0); LYMPH% 39.5 % (15-41); MEAN CELL VOLUME 77.4 fL CALC (80.0-100.0); MEAN CORPUSCULAR HGB 23.3 pG CALC (26.0-32.0); MEAN CORPUSCULAR HGB CONC 30.1 g/dL CAL (32.0-36.0); NEUT# 2.72 thou/uL (2.00-7.15); NEUT% 51.8 % (42-76); RED BLOOD COUNT 5.4 mill/uL (4.20-5.60); RED CELL DISTRI WIDTH 14.4 % (11.5-15.5)
[2023-12-02 07:46] LABS: ALBUMIN 4.5 g/dL (3.2-5.0); CREATININE 0.8 mg/dL (0.5-1.0); POTASSIUM 4.2 mmol/l (3.5-5.1); TOTAL PROTEIN 7.4 g/dL (6.3-8.2)
[2023-12-02 07:50] LABS: BILIRUBIN, TOTAL 0.3 mg/dL (0.02-1.3)
[2023-12-02] MEDS ORDERED: MAGNESIUM SULFATE HEPTAHYDRATE 50 ML IV ONE (08:30)
[2023-12-02] MEDS ORDERED: DEXAMETHASONE SOD. PHOSPHATE 10 MG/ML VIAL IV ONE (08:30)
== END 2023-12-02 11:20 | disposition home or self-care (01) | DRG 103 ==
LOC: ED 06:36
PROVIDERS: Family Medicine
DX: G43.909 Migraine, unspecified, not intractable, without status migrainosus (principal); I11.0 Hypertensive heart disease with heart failure; I50.9 Heart failure, unspecified; E11.9 Type 2 diabetes mellitus without complications; I48.91 Unspecified atrial fibrillation; E78.5 Hyperlipidemia, unspecified; Z79.84 Long term (current) use of oral hypoglycemic drugs; Z79.85 Long-term (current) use of injectable non-insulin antidiabetic drugs
CPT/HCPCS: J3475

== ENCOUNTER 2024-04-21 06:13 | Day surgery (SDC) | payer OTHER ==
[~2024-04-21] VITALS: Ht 157.5 cm; Wt 57.2 kg
[2024-04-21] MEDS ORDERED: SODIUM CHLORIDE 0.9% 1,000 ML IV ONE ×2 (06:45→09:28)
[2024-04-21] MEDS ORDERED: FAMOTIDINE 10MG/ML 2ML SDV IV ONE (06:45)
[2024-04-21] MEDS ORDERED: BUPIVACAINE HCL PF 0.5% 30 ML VIAL ONE (06:49)
[2024-04-21] MEDS ORDERED: ONDANSETRON HCl 4 MG/2 ML SDV ONE ×2 (07:17→09:09)
[2024-04-21] MEDS ORDERED: ceFAZolin Sodium 2 GM/VIAL SDV ONE (07:18)
[2024-04-21] MEDS ORDERED: SODIUM CHLORIDE 0.9% 100 ML IV ONE (07:18)
[2024-04-21] MEDS ORDERED: ACETAMINOPHEN 100 ML IV ONE (08:39)
[2024-04-21] MEDS ORDERED: STERILE WATER FOR IRRIGATION 1,000 ML BTL IR ONE (09:22)
[2024-04-21 10:35] VITALS: BP 97/63
[2024-04-21] MEDS ORDERED: LIDOCAINE HCL 2% 2ML SDV IV ONE (12:15)
[2024-04-21] MEDS ORDERED: SUCCINYLCHOLINE CHLORIDE 20 MG/ML 10ML VIAL IV ONE (12:15)
[2024-04-21] MEDS ORDERED: PROPOFOL 200 MG/20 ML VIAL IV ONE (12:15)
== END 2024-04-21 10:53 | disposition home or self-care (01) | DRG 502 ==
LOC: ORM 06:13
PROVIDERS: ATTEND Podiatrist Foot & Ankle Surgery
PROC: 0J8Q0ZZ Division of Right Foot Subcutaneous Tissue and Fascia, Open Approach (ICD-10-PCS; principal; 2024-04-21)
PROC: 0QBL0ZZ Excision of Right Tarsal, Open Approach (ICD-10-PCS; 2024-04-21)
DX: M72.2 Plantar fascial fibromatosis (principal); M77.31 Calcaneal spur, right foot; M67.01 Short Achilles tendon (acquired), right ankle; E11.9 Type 2 diabetes mellitus without complications
CPT/HCPCS: J0131; J0690; J2405